=== PATIENT | female | born 1970 | race Two or more races ===

== ENCOUNTER 2023-09-10 20:22 | Emergency (ER) | payer OTHER ==
[2023-09-10 20:31] VITALS: BP 134/80; PULSE 58; RESP 18; TEMP 97.8; BMI 26.4
[2023-09-10] MEDS: ACETAMINOPHEN 325 MG TABLET (FP) PO ONE (21:33)
[2023-09-10] MEDS ORDERED: ACETAMINOPHEN 325 MG TABLET (FP) ONE (21:34)
[2023-09-10 21:47] LABS: BASO % 0.2 % (0-2.0); EOS % 1.4 % (0-4.5); HEMATOCRIT 40.9 % (32.4-45.2); HEMOGLOBIN 13.5 GM/dL (10.7-15.3); LYMPH % 40.1 % (8-40); MCH 27.2 pg (25.7-33.7); MCHC 32.9 g/dl (32.0-36.0); MEAN CELL VOLUME 82.7 fl (80-96); MEAN PLT VOLUME 8.2 fl (7.5-11.1); MONO % 5.3 % (3.8-10.2); PLATELET COUNT 259 10^3/uL (134-434); RBC 4.94 M/mm3 (3.60-5.2); RDW 13.5 % (11.6-15.6); WHITE BLOOD COUNT 8.3 K/mm3 (4.0-10.0)
[2023-09-10 21:56] LABS: INR 1.09 (0.83-1.09); PROTHROMBIN TIME (PATIENT) 12.6 SEC (9.7-13.0)
[2023-09-10 22:05] LABS: POTASSIUM 4.2 mmol/L (3.5-5.1)
[2023-09-10 22:07] LABS: CALCIUM 11.1 mg/dL (8.5-10.1)
[2023-09-10 22:08] LABS: ALBUMIN 4.1 g/dl (3.4-5.0); BLOOD UREA NITROGEN 18.6 mg/dL (7-18)
[2023-09-10 22:11] LABS: CREATININE 0.6 mg/dL (0.55-1.3)
[2023-09-10 22:12] LABS: BILIRUBIN,TOTAL 0.3 mg/dL (0.2-1); TOT PROT 7.7 g/dl (6.4-8.2)
== END 2023-09-11 00:36 | disposition home or self-care (01) ==
LOC: JERFT 20:22 → JER 20:22
DX: R07.9 Chest pain, unspecified (principal); R51.9 Headache, unspecified; H57.12 Ocular pain, left eye; R00.2 Palpitations; M79.602 Pain in left arm; H53.19 Other subjective visual disturbances
CPT/HCPCS: 36415; 70450-TC; 71046-TC-FY; 80053; 84484; 85025; 85610; 93005; 93010; 99285-25